=== PATIENT | female | born 1990 | race Caucasian/White ===

== ENCOUNTER 2017-03-12 15:14 | Emergency (ER) | payer OTHER ==
[~2017-03-12] VITALS: Ht 177.8 cm; Wt 100.0 kg
[2017-03-12 15:31] VITALS: BP 118/83; PULSE 73; RESP 16; O2SAT 98
[2017-03-12] MEDS ORDERED: DULO20CA18 PO (15:39)
[2017-03-12] MEDS ORDERED: TOPI50TA88 PO (15:39)
[2017-03-12] MEDS ORDERED: GABA-502 PO (15:39)
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
[2017-03-12] MEDS ORDERED: CYCL10TA9 PO (17:43)
[2017-03-12] MEDS ORDERED: IBUP800T28 PO (17:43)
[2017-03-12 18:01] VITALS: BP 114/81; PULSE 60; RESP 16; O2SAT 99
== END 2017-03-12 18:02 | disposition home or self-care (01) ==
LOC: SED 15:14
DX: S16.1XXA Strain of muscle, fascia and tendon at neck level, initial encounter (principal); S29.012A Strain of muscle and tendon of back wall of thorax, initial encounter; V43.53XA Car driver injured in collision with pick-up truck in traffic accident, initial encounter; Y93.9 Activity, unspecified; Y92.410 Unspecified street and highway as the place of occurrence of the external cause; Y99.9 Unspecified external cause status; Z87.891 Personal history of nicotine dependence; Z79.899 Other long term (current) drug therapy; Z88.8 Allergy status to other drugs, medicaments and biological substances